=== PATIENT | female | born 1955 | race Caucasian/White ===

== ENCOUNTER 2020-11-08 09:00 | Inpatient (IN) | payer MEDICARE ==
[~2020-11-08] VITALS: Ht 157.5 cm; Wt 72.9 kg
[2020-11-08 10:49] LABS: EOSINOPHILS % (AUTO) 3.1 % (0.0-8.0); HEMATOCRIT 43.6 % (36-48); LYMPHOCYTES % (AUTO) 45.6 % (21.0-51.0); MEAN CORPUSCULAR HEMOGLOBIN 29.1 pg (27.0-33.0); MEAN CORPUSCULAR HGB CONC 32.1 g/dL (32.0-36.0); MEAN CORPUSCULAR VOLUME 90.6 fL (79-99); NEUTROPHILS % (AUTO) 41.2 % (40.0-77.0); PLATELET COUNT (AUTO) 329 K/uL (130-400); RED BLOOD CELL COUNT(AUTO) 4.81 MIL/uL (4.00-5.50); RED CELL DISTRIBUTION WIDTH 12.7 % (11.0-15.5); WHITE BLOOD COUNT (AUTO) 6.9 K/uL (4.8-10.8)
[2020-11-08 11:04] LABS: CREATININE 0.9 mg/dL (0.5-1.5); POTASSIUM 4.2 mmol/L (3.5-5.1)
[2020-11-13 10:24] VITALS: BP 127/71
[2020-11-13] MEDS ORDERED: PROP20TA7 PO (11:01)
[2020-11-13] MEDS ORDERED: VENL150C2 PO (11:01)
[2020-11-13] MEDS ORDERED: LEVO75TA4 PO (11:01)
[2020-11-13] MEDS ORDERED: ATOR10 PO (11:01)
[2020-11-13] MEDS ORDERED: VITAMIN D PO (11:01)
[2020-11-14] VITALS (32 sets, daily range): BP systolic 130–164; BP diastolic 67–89
[2020-11-14] MEDS: CEFAZOLIN SODIUM 1 GM VIAL IVP SCH ×4 (06:00→20:14)
[2020-11-14] MEDS ORDERED: LACTATED RINGERS 1000ML 1,000 ML IV ONE (06:18)
[2020-11-14] MEDS ORDERED: CEFAZOLIN SODIUM 1 GM VIAL ONE ×2 (06:32→11:28)
[2020-11-14] MEDS ORDERED: THROMBIN-JMI 20000 UNIT KIT TP ONE (06:32)
[2020-11-14] MEDS: BUPIVACAINE/EPI/PF 0.25% 30ML VIAL IJ SCH ×2 (06:45→08:35)
[2020-11-14] MEDS ORDERED: BUPIVACAINE/PF 0.25% 30ML VIAL IJ ONE (06:46)
[2020-11-14] MEDS ORDERED: SUCCINYLCHOLINE CHLORIDE 20 MG/ML 10 ML VIAL ONE (07:30)
[2020-11-14] MEDS ORDERED: LIDOCAINE PF 2% 5ML ABBOJECT ONE (07:30)
[2020-11-14] MEDS ORDERED: ROCURONIUM 10MG/1ML SYR 10 MG/ML ML ONE (07:30)
[2020-11-14] MEDS ORDERED: PROPOFOL 10 MG/ML 20ML VIAL IV ONE (07:30)
[2020-11-14] MEDS ORDERED: FENTANYL CITRATE PF 50 MCG/1 ML 2ML VIAL ONE (07:31)
[2020-11-14] MEDS ORDERED: MIDAZOLAM HCL 1 MG/ML 2ML VIAL ONE (07:36)
[2020-11-14] MEDS ORDERED: MANNITOL 20% 500ML BAG 500 ML IV ONE (07:38)
[2020-11-14] MEDS ORDERED: GLYCOPYRROLATE 1 MG/5 ML SYRINGE ONE ×2 (08:24→11:53)
[2020-11-14] MEDS ORDERED: DEXAMETHASONE SOD PHOSPHATE 10MG/ML 1ML VIAL ONE (11:53)
[2020-11-14] MEDS ORDERED: KETOROLAC TROMETHAMINE 30MG/ML ONE (11:53)
[2020-11-14] MEDS ORDERED: NEOSTIGMINE 5MG/5ML SYR IV ONE (11:53)
[2020-11-14] MEDS ORDERED: ONDANSETRON HCL 4 MG/2 ML VIAL ONE (11:54)
[2020-11-14] MEDS ORDERED: MEPERIDINE-PF 25 MG/ML SYG ONE (12:06)
[2020-11-14] MEDS ORDERED: MORPHINE SULFATE 2 MG/ML 1ML SYG IVP PRN (12:30)
[2020-11-14] MEDS ORDERED: PHARMACY COMMUNICATION MISC SCH (13:15)
[2020-11-14] MEDS ORDERED: DEXAMETHASONE SOD PHOSPHATE 4 MG/ML 1ML VIAL ONE (13:47)
[2020-11-14] MEDS: DEXAMETHASONE SOD PHOSPHATE 4 MG/ML 1ML VIAL IVP SCH ×2 (13:49→20:16)
[2020-11-14] MEDS ORDERED: EFFEXOR 150 MG PO SCH (14:00)
[2020-11-14] MEDS: LACTATED RINGERS 1000ML 1,000 ML IV SCH (14:43)
[2020-11-14] MEDS: FAMOTIDINE/PF 20 MG/2 ML VIAL IV SCH (20:14)
[2020-11-14] MEDS: ATORVASTATIN CALCIUM 10 MG TABLET PO SCH ×2 (20:17→21:00)
[2020-11-14] MEDS: VENLAFAXINE HCL XR 37.5 MG CAP PO SCH ×2 (20:18→21:00)
[2020-11-14] MEDS: PROPRANOLOL HCL 20 MG TAB PO SCH (21:00)
[2020-11-15] VITALS (16 sets, daily range): BP systolic 119–162; BP diastolic 64–82
[2020-11-15] MEDS: DEXAMETHASONE SOD PHOSPHATE 4 MG/ML 1ML VIAL IVP SCH ×3 (01:29→14:21)
[2020-11-15] MEDS: LACTATED RINGERS 1000ML 1,000 ML IV SCH ×2 (02:36→15:10)
[2020-11-15] MEDS: CEFAZOLIN SODIUM 1 GM VIAL IVP SCH (04:30)
[2020-11-15] MEDS ORDERED: KETOROLAC TROMETHAMINE 15MG/ML IV PRN (08:00)
[2020-11-15] MEDS ORDERED: ACETAMINOPHEN 325 MG TAB PO PRN (08:00)
[2020-11-15] MEDS: FAMOTIDINE/PF 20 MG/2 ML VIAL IV SCH (08:26)
[2020-11-15] MEDS ORDERED: LEVOTHYROXINE 75 MCG TABLET PO SCH (09:00)
[2020-11-15] MEDS ORDERED: PANTOPRAZOLE 40 MG/VIAL IVP SCH ×2 (09:00)
[2020-11-15] MEDS ORDERED: ERGOCALCIFEROL (VITAMIN D2) 50,000 UNIT CAPSULE PO SCH (09:00)
[2020-11-15] MEDS: PROPRANOLOL HCL 20 MG TAB PO SCH (10:09)
[2020-11-15] MEDS ORDERED: VENLAFAXINE HCL XR 37.5 MG CAP PO SCH (14:30)
== END 2020-11-15 18:30 | disposition home or self-care (01) | DRG 27 ==
LOC: EDSTATUS 09:00 → DAHIP 11-14 05:48 → 2DH 11-14 16:48
PROVIDERS: ADMIT Neurological Surgery; ATTEND Neurological Surgery
PROC: 4A103BD Monitoring of Intracranial Pressure, Percutaneous Approach (ICD-10-PCS; 2020-11-14)
PROC: 00B10ZZ Excision of Cerebral Meninges, Open Approach (ICD-10-PCS; principal; 2020-11-14 08:35)
PROC: 0PB30ZZ Excision of Cervical Vertebra, Open Approach (ICD-10-PCS; 2020-11-14 08:35)
PROC: 00U207Z Supplement Dura Mater with Autologous Tissue Substitute, Open Approach (ICD-10-PCS; 2020-11-14 08:35)
DX: D32.9 Benign neoplasm of meninges, unspecified (principal); Z85.3 Personal history of malignant neoplasm of breast; S06.300A Unspecified focal traumatic brain injury without loss of consciousness, initial encounter; Z90.10 Acquired absence of unspecified breast and nipple; R73.03 Prediabetes; I10 Essential (primary) hypertension; Z90.49 Acquired absence of other specified parts of digestive tract; Z20.822 Contact with and (suspected) exposure to COVID-19; Y93.89 Activity, other specified; Y92.89 Other specified places as the place of occurrence of the external cause; Y99.8 Other external cause status; W00.0XXA Fall on same level due to ice and snow, initial encounter
CPT/HCPCS: 36415; 71045; 80048; 85025; 92610; A4344; C1713; J0330; J0690; J1100; J1885; J2001; J2175; J2250; J2405; J2704; J2710; J3010; J3490; J7030; J7040; J7120; U0003

== ENCOUNTER → 2020-12-20 | Outpatient (CLI) | payer MEDICARE ==
[~2020-12-20] MED LIST: ATOR10 PO; LEVO75TA4 PO; PROP20TA7 PO; VENL150C2 PO; VITAMIN D PO
[2020-12-20 15:12] LABS: CREATININE 0.8 mg/dL (0.5-1.5)
== END | disposition home or self-care (01) ==
LOC: LAB 14:23
PROVIDERS: ATTEND Neurological Surgery
DX: D32.0 Benign neoplasm of cerebral meninges (principal)
CPT/HCPCS: 36415; 82565; 84520

== ENCOUNTER → 2020-12-21 | Outpatient (CLI) | payer MEDICARE ==
[~2020-12-21] MED LIST changes: +GADODIAMIDE 10 MMOL/20 ML VIAL IV ONE
== END | disposition home or self-care (01) ==
LOC: RAH 08:59
PROVIDERS: ATTEND Neurological Surgery
DX: G31.9 Degenerative disease of nervous system, unspecified (principal); D32.0 Benign neoplasm of cerebral meninges
CPT/HCPCS: 70553; A9579